=== PATIENT | female | born 1965 | race Caucasian/White ===

== ENCOUNTER 2017-02-27 13:28 | Emergency (ER) | payer OTHER ==
[~2017-02-27] VITALS: Ht 162.6 cm; Wt 113.4 kg
[~2017-02-27 13:28] MED LIST: ADVIL200 M1; AZITHROMYCIN 2250 MG PO; CARISOPRODOL 3350 MG PO; CLARITIN-D 12 H1 TA1; CYCLOBENZAPRINE5 MG PO; FLEXERIL PO; GUAIFENESIN-CODE5 ML PO; IBUPROFEN 600600 M1 PO; IBUPROFEN 800800 M1 PO; KEFLEX500 M1 PO; MUCINEX600 MG; NAPROSYN500 MG PO; NOHOMEMEDICATIONS; NORCO 5-325 TA1 EACH PO; PREDNISONE50 MG PO; TIZANIDINE HCL4 MG PO; TRAMADOL 50 MG50 MG PO; ULTRAM 50MG TAB50 MG PO; VIBRAMYCIN 100100 MG PO; ZPAK PO
[2017-02-27 13:33] VITALS: BP 134/80
[2017-02-27] MEDS ORDERED: PREDNISONE 20 M20 MG PO (14:41)
[2017-02-27] MEDS ORDERED: CLEOCIN HCL150 MG PO (14:41)
[2017-02-27] MEDS ORDERED: BENADRYL25 MG PO (14:41)
[2017-10-29] MEDS ORDERED: TRAMADOL 50 MG50 MG PO (22:30)
== END 2017-02-27 15:01 | disposition home or self-care (01) ==
LOC: ER 13:28
DX: H00.036 Abscess of eyelid left eye, unspecified eyelid (principal); Z88.0 Allergy status to penicillin; Z88.2 Allergy status to sulfonamides; Z87.891 Personal history of nicotine dependence; Z98.890 Other specified postprocedural states

== ENCOUNTER 2017-08-07 13:22 | Emergency (ER) | payer OTHER ==
[~2017-08-07] VITALS: Ht 162.6 cm; Wt 113.4 kg
[~2017-08-07 13:22] MED LIST changes: +BENADRYL25 MG PO; +CLEOCIN HCL150 MG PO; +PREDNISONE 20 M20 MG PO
[2017-08-07] MEDS ORDERED: HYDROCODONE-AP1 EAC6 PO (14:47)
[2017-08-07] MEDS ORDERED: CYCLOBENZAPRINE5 MG PO (14:56)
[2017-08-07 15:11] VITALS: BP 113/87
== END 2017-08-07 15:12 | disposition home or self-care (01) ==
LOC: ER 13:22
DX: S83.92XA Sprain of unspecified site of left knee, initial encounter (principal); Z88.1 Allergy status to other antibiotic agents; Z88.2 Allergy status to sulfonamides; Z88.8 Allergy status to other drugs, medicaments and biological substances; Z87.891 Personal history of nicotine dependence; W10.9XXA Fall (on) (from) unspecified stairs and steps, initial encounter; Y92.89 Other specified places as the place of occurrence of the external cause; Y93.89 Activity, other specified; Y99.8 Other external cause status

== ENCOUNTER 2019-04-20 16:51 | Emergency (ER) | payer OTHER ==
[~2019-04-20] VITALS: Ht 162.6 cm; Wt 113.4 kg
[~2019-04-20 16:51] MED LIST changes: +HYDROCODONE-AP1 EAC6 PO
[2019-04-20] MEDS ORDERED: VALIUM5 MG PO (18:23)
[2019-04-20] MEDS ORDERED: MOBIC15 MG PO (18:23)
[2019-04-20 18:53] VITALS: BP 122/74
== END 2019-04-20 18:53 | disposition home or self-care (01) ==
LOC: ER 16:51
DX: S13.4XXA Sprain of ligaments of cervical spine, initial encounter (principal); S09.90XA Unspecified injury of head, initial encounter; M54.10 Radiculopathy, site unspecified; Z87.891 Personal history of nicotine dependence; Z98.890 Other specified postprocedural states; W22.8XXA Striking against or struck by other objects, initial encounter; Y93.89 Activity, other specified; Y92.89 Other specified places as the place of occurrence of the external cause; Y99.8 Other external cause status